=== PATIENT | female | born 1980 | race Caucasian/White ===

== ENCOUNTER 2021-05-10 10:09 | Emergency (ER) | payer OTHER ==
[~2021-05-10] VITALS: Ht 188 cm; Wt 89.3 kg
[2021-05-10 12:23] LABS: BASOPHILS % (AUTO) 0 % (0-1); EOSINOPHILS % (AUTO) 1 % (1-7); LYMPHOCYTES % (AUTO) 25 % (22-44); MEAN CORPUSCULAR HEMOGLOBIN 32.4 pg (27.0-34.8); MEAN CORPUSCULAR HGB CONC 33.7 g/dL (32.4-35.8); MEAN PLATELET VOLUME 7.6 fL (7.4-10.4); MONOCYTES % (AUTO) 14 % (2-9); NEUTROPHILS % (AUTO) 61 % (42-75); PLATELET COUNT 170 x10^3/uL (130-400); RED BLOOD COUNT 4.49 x10^6/uL (3.82-5.3); RED CELL DISTRIBUTION WIDTH 13.5 % (9.6-15.2)
--- NOTE | 2021-05-10 12:27 | NUR ---
TO ROOM FROM LOBBY
[2021-05-10 12:31] LABS: ALANINE AMINOTRANSFERASE 20 U/L (12-78); ALBUMIN 3.5 g/dL (3.4-5.0); ANION GAP 7 mmol/L (5-15); CALCIUM 8.5 mg/dL (8.5-10.1); CHLORIDE 104 mmol/L (98-107); CREATININE 0.68 mg/dL (0.55-1.02)
[2021-05-10] MEDS ORDERED: HYDR12.517 PO (12:35)
[2021-05-10] MEDS ORDERED: LISI-170 PO (12:35)
--- NOTE | 2021-05-10 12:35 | NUR ---
PT AMBULATORY TO ROOM FROM [facility]. C/O N/V/D AND ABD PAIN X 4 DAYS. PT INSTRUCTED ON COLLECTION OF CLEAN CATCH URINE. URINE COLLECTED AND DELIVERED TO LAB.
[2021-05-10 12:38] VITALS: BP 137/81
[2021-05-10 12:38] LABS: ALKALINE PHOSPHATASE 42 U/L (45-117); BILIRUBIN,TOTAL 0.7 mg/dL (0.2-1.0); TOTAL PROTEIN 7.3 g/dL (6.4-8.2)
--- NOTE | 2021-05-10 12:43 | NUR ---
PT VSS, CALL LIGHT W/I REACH. PROVEDER EVAL AND TEST RESULTS
[2021-05-10 13:03] LABS: MICROSCOPIC NOT IND
--- NOTE | 2021-05-10 13:09 | NUR ---
STOOL SAMPLE DELIVERED TO LAB
--- NOTE | 2021-05-10 13:58 | NUR ---
ER PROVIDER REVIEWED TEST RESULTS WITH PT AND QUESTIONS ANSWERED. STOOL RESULTS STILL [place]
--- NOTE | 2021-05-10 13:59 | NUR ---
STOOL RESULTS PENDING
[2021-05-10 14:04] LABS: CLOSTRIDIUM DIFFICILE ANTIGEN NEGATIVE; CLOSTRIDIUM DIFFICILE TOXIN NEGATIVE (Negative)
== END 2021-05-10 14:37 | disposition home or self-care (01) ==
LOC: ED 13:09
DX: R10.84 Generalized abdominal pain (principal); R11.2 Nausea with vomiting, unspecified; R19.7 Diarrhea, unspecified; F17.200 Nicotine dependence, unspecified, uncomplicated
CPT/HCPCS: 36415; 80053; 81003; 83690; 84703; 85025; 87324; 89055; 99283